=== PATIENT | female | born 1990 | race Caucasian/White ===

== ENCOUNTER 2022-02-21 08:27 | Outpatient (CLI) | payer BC, SELFPAY ==
--- NOTE | 2022-02-21 08:45 | CRLHL7_ITS ---
For Patients: As a result of the Cures Act, medical imaging exams and procedure reports are released immediately into your electronic medical record. You may view this report before your referring provider. If you have questions, please contact your health care provider. DIGITAL DIAGNOSTIC LEFT MAMMOGRAM USING TOMOSYNTHESIS AND COMPUTER-AIDED DETECTION, 02/21/2022 LEFT BREAST ULTRASOUND, 02/21/2022 CLINICAL HISTORY: LEFT breast lump. COMPARISON: None. TECHNIQUE: Digital LEFT mammogram in two projections. Tomosynthesis and CAD utilized. Real-time ultrasound imaging of LEFT breast with imaging documentation. Scanning was performed by both the technologist and the radiologist. BREAST COMPOSITION: The breasts are extremely dense, which may limit the sensitivity of mammography. FINDINGS: 3D CC and 3D MLO LEFT breast mammograms submitted. Benign calcifications are present. No suspicious masses, architectural distortion or adenopathy. Targeted LEFT breast ultrasound in area of concern, subareolar region, laterally performed. Normal dense fibroglandular tissue noted. No fibrocystic change or suspicious findings. IMPRESSION: Normal diagnostic LEFT breast mammograms and LEFT breast ultrasound. RECOMMENDATIONS: Clinical follow-up. Consider genetic testing as the patient`s sister had breast cancer at the age of 31. Results and recommendations were discussed with the patient. BI-RADS Category 2: Benign A lay language report of this examination will be provided to the patient. Dictated by Ronny Gonzales MD @ 02/21/2022 9:48:46 AM /Dictated by: Ronny Gonzales MD @ 02/21/2022 9:48:00 AM (Electronically Signed)
--- NOTE | 2022-02-21 09:15 | CRLHL7_ITS ---
For Patients: As a result of the Cures Act, medical imaging exams and procedure reports are released immediately into your electronic medical record. You may view this report before your referring provider. If you have questions, please contact your health care provider. PLEASE SEE DIGITAL DIAGNOSTIC LEFT MAMMOGRAM PERFORMED SAME DAY CRL:[email or web address]/Dictated by: Ronny Gonzales MD @ 02/21/2022 9:48:00 AM (Electronically Signed)
== END 2022-02-21 08:28 | disposition home or self-care (01) ==
LOC: MAMMO 08:28
PROVIDERS: PCP Family Medicine; Visit Provider Obstetrics & Gynecology
DX: N63.20 Unspecified lump in the left breast, unspecified quadrant (principal)
CPT/HCPCS: 76642; 77065; G0279